=== PATIENT | female | born 1965 | race Caucasian/White ===

== ENCOUNTER 2016-12-01 11:46 | Emergency (ER) | payer BC, OTHER ==
[2016-12-01 11:52] VITALS: BP 144/68; PULSE 60; TEMP 97.9; BMI 19.4
--- NOTE | 2016-12-01 12:27 | PDOC ---
History of Present Illness - General Chief Complaint: Pain, Acute Stated Complaint: BACK PAIN Time Seen by Provider: 12/01/16 12:13 History Source: Patient Exam Limitations: No Limitations - History of Present Illness Initial Comments: 12/01/16 12:26 51 year female with history of Crohn's disease presents s/p slip and fall on back this morning with subsequent band-like pain to the back and chest in an associated shortness of breath. Patient claims she was outside walking down some stairs in flip-flops following the rain when she slipped and landed with her back on one of the stares. The impact of the fall knocked her breath out of her for several seconds and since that time she has been feeling a pain in her mid back that wraps around to the front and it has made it difficult for her to breath. Patient has tried Tylenol for the pain with minimal relief. She does not take NSAIDs due to her Crohn's. Declined all pain and antispasmotic medications due to possible abdominal complications. Patient denies any loss of consciousness or hitting her head during the fall. Denies headache, dizziness, changes to vision, changes to hearing. Patient also currently has shingles which is being treated with famciclovir. Past History - Past Medical History Allergies/Adverse Reactions: Allergies Allergy/AdvReac Type Severity Reaction Status Date / Time No Known Allergies Allergy Verified 12/01/16 11:47 Home Medications: Ambulatory Orders Famciclovir 0 mg PO DAILY 12/01/16 GI Disorders: Yes (CHRONES) Other medical history: SHINGLES - Immunization History Td Vaccination: Yes Immunization Up to Date: Yes - Psycho/Social/Smoking Cessation Hx Suicidal Ideation: No Smoking Status: No Smoking History: Never smoked Number of Cigarettes Smoked Daily: 0 Hx Alcohol Use: No Drug/Substance Use Hx: No Substance Use Type: None Review of Systems - Review of Systems Able to Perform ROS?: Yes Is the patient limited [place]tarian proficient: No Constitutional: No: Chills, Fever HEENTM: No: Blurred Vision, Double Vision, Hearing Loss Respiratory: Yes: Shortness of Breath Cardiac (ROS): Yes: Chest Pain (band-like at the lower costal margin). No: Syncope Musculoskeletal: Yes: Muscle Pain Neurological: No: Headache, Numbness, Paresthesia, Tingling, Weakness, Dizziness *Physical Exam - Vital Signs Last Vital Signs Temp Pulse Resp BP Pulse Ox 97.9 F 60 18 144/68 100 12/01/16 11:47 12/01/16 11:47 12/01/16 11:47 12/01/16 11:47 12/01/16 11:47 - Physical Exam General Appearance: Yes: Nourished, Appropriately Dressed HEENT: positive: EOMI Neck: positive: Supple. negative: Tender, Decreased range of motion, Tender midline Respiratory/Chest: positive: Lungs Clear, Normal Breath Sounds. negative: Chest Tender Cardiovascular: positive: Regular Rhythm, Regular Rate Gastrointestinal/Abdominal: positive: Normal Bowel Sounds, Flat, Soft. negative : Tender Musculoskeletal: negative: Decreased Range of Motion, Vertebral Tenderness Integumentary: positive: Rash (right sided, small vesicles w/erythema in a T9/ T10 nevaeh-dermatome distribution) Neurologic: positive: social scientist II-XII NML intact, Fully Oriented, Alert, Normal Mood/ Affect, Motor Strength / ED Treatment Course - RADIOLOGY Chest X-Ray Result: Other (No acute pulmonary pathology) Medical Decision Making - Medical Decision Making 51 year old female s/p slip and fall on the back with residual pain and mild difficulty breathing consistent with an expected musculoskelital response to the trauma. No bony tenderness or focal neurological deficits. Patient not interest in NSAIDs or antispasmodics. CXR to rule out gross bony abnormalities. CXR reviewed and non concerning. Patient discharged with recommendations for non pharmacological pain management techniques and return precautions *DC/Admit/Observation/Transfer Diagnosis at time of Disposition: Muscle spasm, Muscle strain - Discharge Dispostion Condition at time of disposition: Stable Admit: No - Referrals Referrals: Nia Philip MD [Primary Care Provider] - - Patient Instructions Printed Discharge Instructions: DI for Muscle Strain Additional Instructions: Thank you for trusting us with your health care today. I hope you were satisfied with your care. As we discussed your symptoms are most consistent with a muscle strain. The tests we performed ruled out serious conditions, however, if your symptoms do not improve in the next few days, you should follow up with your primary doctor for pain management. If you become significantly worse or additional breathing difficulties, please return to the ED immediately. Remember that your pain is probably going to be worse tomorrow and should start to improve after that. Hot baths or heating pads may help with the pain. - Attestations Physician Attestion: 12/01/16 14:15 I, Dr. Mack Best, attest that this document has been prepared under my direction and personally reviewed by me in its entirety. I further attest, that it accurately reflects all work, treatment, procedures and medical decision -making performed by me.
[2016-12-01] MEDS ORDERED: KETOROLAC TROMETHAMINE 30 MG/1 ML VIAL IM ONE (12:31)
--- NOTE | 2016-12-01 12:38 | PDOC ---
Attending Attestation - Resident Resident Name: Mack Best - ED Attending Attestation I have performed the following: I have examined & evaluated the patient, The case was reviewed & discussed with the resident, I agree w/resident's findings & plan, Exceptions are as noted - HPI HPI: 12/01/16 12:36 Agree with the resident's HPI as documented in the electronic medical record. - Physicial Exam PE: 12/01/16 12:36 Agree with the resident's physical examination as documented in the electronic medical record. - Medical Decision Making 12/01/16 12:37 51-year-old female with history of Crohn's disease and recent diagnosis of shingles presents to the emergency Department with complaints of back and chest pain following a mechanical fall at 10 AM today. Differential diagnosis includes but is not limited to: Rib fractures, pneumothorax, contusion. Plan: 1. Chest x-ray 2. Pain managementoffered to patient that she adamantly refused 3. Observe and reevaluate 12/01/16 14:00 Addendum: CXR is negative. Will discharge patient home. Follow-up with PCP and return to the ED if Sx persist, worsen or new Sx arise.
== END 2016-12-01 14:23 | disposition home or self-care (01) ==
LOC: FER 11:46
DX: M62.830 Muscle spasm of back (principal); K50.90 Crohn's disease, unspecified, without complications; T14.8 Other injury of unspecified body region; W10.9XXA Fall (on) (from) unspecified stairs and steps, initial encounter; Y93.89 Activity, other specified; Y92.9 Unspecified place or not applicable
CPT/HCPCS: 71020-TC; 99282-25